=== PATIENT | female | born 1960 ===

== ENCOUNTER 2018-03-10 05:53 | Day surgery (SDC) | payer BC ==
[2018-03-10] MEDS ORDERED: Lidocaine 2% MPF (5 ml) Inj ONE (07:28)
[2018-03-10] MEDS ORDERED: Bupivacaine 0.25% 20 ML INJ IJ ONE ×2 (07:29→09:12)
[2018-03-10] MEDS ORDERED: Clindamycin 600mg/50ml NS 600 MG/50 ML BAG IVPB ONE (07:29)
[2018-03-10] MEDS ORDERED: Propofol 10 mg/ml Inj (20 ML) ONE ×2 (07:39→07:47)
[2018-03-10] MEDS ORDERED: Midazolam 2 MG/2 ML VIAL ONE ×2 (07:39→08:45)
[2018-03-10] MEDS ORDERED: Lidocaine Hydrochloride 5 ML INJ ONE (07:40)
[2018-03-10] MEDS ORDERED: Lidocaine Hydrochloride 20 ML INJ ONE (09:11)
[2018-03-10 11:19] VITALS: BMI 33.8
[2018-03-10] MEDS ORDERED: HYDROmorphone 0.5 mg/0.5 ml ISec IVP PRN (11:24)
[2018-03-10] MEDS ORDERED: Lactated Ringer's 1,000 ML IV SCH (11:30)
[2018-03-10] MEDS ORDERED: Oxycodone/Acetaminophen 5/325 mg Tab PO PRN ×2 (11:36)
--- NOTE | 2018-03-10 11:43 | PCM.SURG1 ---
Surgeon's Initial Post Op Note - Surgeon's Notes Surgeon: Dr. Nash Real Estate Agent: Dr. Eugene Beck, Dr. Thomas Type of Anesthesia: General LMA Pre-Operative Diagnosis: Left foot 5ht metatarsal shaft fracture comminuted Operative Findings: Synthes 8hole plate, 2.4 non-locking, 2.0 locking screws, 0.0045 K-wire Post-Operative Diagnosis: same Operation Performed: Left foot ORIF of 5th metatarsal with internal fixation Specimen/Specimens Removed: none Estimated Blood Loss: EBL {In ML}: 5 Blood Products Given: N/A Drains Used: No Drains Post-Op Condition: Good Date of Surgery/Procedure: 03/10/18 Time of Surgery/Procedure: 08:00
[2018-03-10 12:58] VITALS: RESP 16; TEMP 97.6; O2SAT 95
[2018-03-10 13:24] VITALS: BP 102/51; PULSE 94
--- NOTE | 2018-03-11 16:51 | PCM.OP ---
Operative Report - Operative Report Date of Surgery/Procedure: 03/10/18 Time of Surgery/Procedure: 08:00 Surgeon: Dr. Nash Drafter Topographical: Dr. William Jaimes Anesthesia/Sedation: General LMA and Local Pre-Operative Diagnosis: LEFT foot 5th metatarsal comminuted fracture Post-Operative Diagnosis: same Indication for Surgery: Indications: The patient is a 57 year-old female with the above diagnoses. The patient has exhausted conservative treatment and now requires surgical intervention. The patient signed the consent after careful explanation of risks, benefits, complication and alternatives for surgical procedure. No guarantees were given nor implied. 900 mg of Clindamycin IV were given to the pt hour prior to the procedure. NPO status was confirmed prior to taking pt to the OR. Operative Findings: Preparation: The patient was brought to the operating room and placed on the operating room table in supine position. A well-padded pneumatic ankle tourniquet was placed to the patient's LEFT ankle in supramalleolar position. Once general anesthesia was achieved, LEFT foot was injected with 20mL of 1:1 mixture of 0.5% Marcaine plain and 1% Lidocaine plain. The LEFT lower extremity was then prepped and draped in usual sterile manner. Esmarch was utilized to exsanguinate the patient's LEFT lower extremity. Pneumatic ankle tourniquet was then inflated to 250 mmHg and procedure began. Procedure/Operation Description: PROCEDURE: LEFT foot 5th metatarsal open reduction and internal fixation Attention was directed to the LEFT foot 5th metatarsal shaft where the fracture is located from the pre-operative Xray. Utilizing #15 blade, approximately 5 cm linear longitudinal incision was made overlying the 5th metatarsal involving the MTPJ. The incision was deepened through the subcutaneous tissues using sharp and blunt dissection. Care was taken to identify and retract all vital neurovascular structures. All bleeders were cauterized and ligated as necessary. Next Utilizing #15 blade, linear longitudinal incision was made along the shaft of 5 th metatarsal extending distally up to 1st MTPJ joint capsule. A comminuted fracture was noted at the distal aspect of 5th metatarsal shaft. Upon careful examination, it was noted that the 5th metatarsal was fractured into four different parts with some voids plantar-laterally. Utilizing 0.0045 inch K-wire, dorsal fragments of the shaft was fixated with the base of metatarsal. Next, utilizing a small bone clamp, head of the 5th metatarsal was rotated and carefully pulled distally to bring the 5th metatarsal to its original length. Next, a 9 hole LC-DCP plate from modular set was cut one hole short, making it an 8 hole plate. Next, utilizing plate benders, the plate was bent so as to accommodate the contour of the 5th metatarsal head and the shaft. One of the two most distal bipartite holes was bent so as to support head of the metatarsal from plantar side. Next, following standard AO principles and technique, a 2.0 x 10 mm locking screw was inserted at the head of the 5th metatarsal through the most distal hole of the plate, fixating the head of the metatarsal on to the plate with excellent orientation. While still holding the head of 5th metatarsal in length with a small bone clamp, the proximal three holes of the plate were filled in with a 2.0 x 10 mm non-locking screw and two 2.0 x 10 mm locking screws, fixating the plate to the 5th metatarsal base with excellent compression and alignment. Next, following AO principles and techniques, a 2.4 x 10 mm non- locking screw was inserted into the 5th hole from proximal end, grabbing the plantar comminuted fragment securely with excellent alignment. At this time, three views of intra-operative Xray was taken and excellent alignment and orientation of 5th metatarsal was noted. Next, utilizing a wire preparation worker, the 0.0045 inch K-wire fixating the dorsal fragment with the base of 5th metatarsal was cut flush to the bone. The surgical site was irrigated with copious amount of normal sterile saline. Excellent reduction and alignment was noted under direct visualization and intra-operative Xray. Next, a Synthes DMX bone putty was utilized to fill in the defect of the 5th metatarsal shaft. Capsular and periosteal structures were reapproximated with #2-0 , 3-0 vicryl. Subcutansous tissue was reapproximated with #4-0 vicryl. Skin was reapproximated with #4-0 Prolene in horizontal mattress suture technique. . LEFT foot was dressed with betadine soaked adaptic, 4x 4 gauze, cynthia and posterior splint The attending was present during the case. Estimated Blood Loss: 30 mL Complications: None Discharge & Condition: Postoperative Condition: The patient tolerated the anesthesia and procedure well and was escorted to the recovery room with vital signs stable and neurovascular status intact to the LEFT lower extremity. This patient will be non-weight bearing to LEFT foot and follow up with Dr. Nash.
== END 2018-03-10 13:21 | disposition home or self-care (01) ==
LOC: C.SDS 05:53
PROVIDERS: ATTEND Podiatrist Foot & Ankle Surgery
DX: S92.352A Displaced fracture of fifth metatarsal bone, left foot, initial encounter for closed fracture (principal); X58.XXXA Exposure to other specified factors, initial encounter; E11.9 Type 2 diabetes mellitus without complications; I10 Essential (primary) hypertension; J45.909 Unspecified asthma, uncomplicated
CPT/HCPCS: 28485; 82948; 97116; 97161; G8978; G8979; G8980; J2250; J2704; J3010